=== PATIENT | male | born 1935 | race Caucasian/White ===

== ENCOUNTER 2018-01-03 11:12 | Outpatient (CLI) | payer MEDICARE, BC ==
[~2018-01-03] VITALS: Ht 182.9 cm; Wt 89.1 kg
--- NOTE | ~2018-01-03 | HEMODYNAMI ---
PATIENT:SAMUEL ESCOBAR MEDICAL RECORD: [id number] : 39 LOCATION:[facility] ADMISSION DATE: 01/03/18 Generatedon:01/03/201815:30 Patient name: SAMUEL ESCOBAR Patient #: [id number] SSN: : [id number] Date of study: 01/03/2018 Page: Of Hemodynamic Procedure Report Patient Data Patient Demographics Procedure consent was obtained First Name: SAMUEL Gender: Male Last Name: LUZ : 1935 [facility] Initial: Enmanuel. Age: 82 year(s) Patient #: [id number] Race: Unknown Additional ID: [id number] Contact details Address: [place] [address] State: [place] City: [place] Zip code: [address] Past Medical History Allergies Allergen Reaction Date Comments Reported Sulfa drugs 01/03/2018 Penicillins 01/03/2018 Admission Admission Data Admission Date: 01/03/2018 Admission Time: 11:12 Height (in.): 6 BSA: 0.35 (m2) Height (cm.): 15.24 BMI: 3769.23 (kg/m2) Weight (lbs.): 193 Weight (kg.): 87.54 Lab Results Lab Result Date: 01/03/2018 Lab Result Time: 0:00 CBC Name Units Result Min Max Hematocrit % 49.2 --(--*-)-- 42 54 Hemoglobin g/dl 17.7 --(----)*- 13.5 17.5 Procedure Procedure Types Cath Procedure Peripheral Cath Diagnostic Procedure Cath Peripheral Klkqo-Mwfsoak-Jkp-Off Procedure Description Procedure Date Procedure Date: 01/03/2018 Procedure Start Time: 15:10 Procedure End Time: 15:29 Procedure Staff Name Function Michaela Vivar RT Scrub Flynn Yoon RN Nurse Joni Chávez MD Performing Physician Angeli Shannon RT Monitor Sharon Copeland RT Monitor Buck Turner RT Scrub Procedure Data Cath Procedure Fluoroscopy Diagnostic fluoroscopy Total fluoroscopy Time: 3.5 time: 3.5 min min Diagnostic fluoroscopy Total fluoroscopy dose: 356 dose: 356 mGy mGy Contrast Material Contrast Material Type Amount (ml) Isovue 300 103 Entry Location Entry Primary Successful Side Size Upsize Upsize Entry Closure Succes sful Closure Location (Fr) 1 (Fr) 2 (Fr) Remarks Device Remarks Femoral Right 5 Fr Exoseal artery Estimated blood loss: 5 ml Diagnostic catheters Device Type Used For End Catheter Placement DIAGNOSTIC UF 5Fr Abdominal catheter ([id number]) aortogram with runoff DIAGNOSTIC IM 5Fr Lower extremity catheter ([id number]) arteriography Procedure Medications Medication Administration Route Dosage Oxygen etCO2 Nasal cannula 2 l/min Lidocaine 2% added to field 20 Heparin Flush Bag added to field 2 bags (1000units/500ml NS) 0.9% NaCl I.V. 100 ml/hr Versed I.V. 1 mg Fentanyl I.V. 50 mcg Versed I.V. 1 mg Fentanyl I.V. 50 mcg Versed I.V. 1 mg Hemodynamics Rest BSA: 0.35 (m2) HGB: 17.7 (g/dl) O2 Consumption: Estimated: 40.15 (ml/min) O2 Con sumption indexed: Estimated:114.71 (ml/min/m) Heart Rate: 71 (bpm) Snapshots Pre Cath Intra NCS Post Cath Vital Signs Time Heart Resp SPO2 etCO2 NIBP (mmHg) Rhythm Pain Sedation Rate (ipm) (%) (mmHg) Status Level (bpm) 14:47:42 78 18 98 22.5 136/92(100) NSR 0 (11) 10(A) , No pain 14:51:50 75 19 99 27.8 124/80(105) NSR 0 (11) 10(A) , No pain 14:55:57 77 18 93 0 122/71(99) NSR 0 (11) 10(A) , No pain 15:00:03 59 22 95 13.5 133/74(102) NSR 0 (11) 10(A) , No pain 15:04:11 65 14 95 20.3 120/77(95) NSR 0 (11) 10(A) , No pain 15:08:19 79 21 97 0 101/65(77) NSR 0 (11) 9(A) , No pain 15:12:17 76 17 94 16 115/78(92) NSR 0 (11) 9(A) , No pain 15:16:22 82 15 97 14.3 111/68(89) NSR 0 (11) 9(A) , No pain 15:20:22 78 14 97 11.2 123/80(98) NSR 0 (11) 9(A) , No pain 15:24:28 78 27 94 14.2 114/74(95) NSR 0 (11) 10(A) , No pain 15:28:29 79 17 94 23.3 119/78(110) NSR 0 (11) 10(A) , No pain Medications Time Medication Route Dose Verified Delivered Reason Notes Eff ectiveness by by 14:51:06 Oxygen etCO2 2 Joni Buffie used for Nasal l/min Kyler Yoon RN procedure cannula 14:51:12 Lidocaine 2% added 20ml Joni Joni for local to vial Kyler Chávez MD anesthetic field 14:51:18 Heparin Flush added 2 Joni Joni used for Bag to bags Kyler Chávez MD procedure (1000units/500ml field NS) 14:51:27 0.9% NaCl I.V. 100 Joni Buffie Per ml/hr Kyler Yoon RN physician 15:00:09 Versed I.V. 1 mg Joni Buffie for Kyler Yoon RN sedation 15:00:16 Fentanyl I.V. 50 Joni Buffie for mcg Kyler Yoon RN sedation 15:04:51 Versed I.V. 1 mg Joni Buffie for Kyler Yoon RN sedation 15:04:55 Fentanyl I.V. 50 Joni Buffie for mcg Kyler Yoon RN sedation 15:19:32 Versed I.V. 1 mg Joni Buffie for Kyler Yoon RN sedation Procedure Log Time Note 14:31:49 Time tracking: Regular hours (M-F 7:00 - 5:00) 14:31:54 Plan of Care:Hemodynamics will remain stable., Cardiac rhythm will remain stable., Comfort level will be maintained., Respiratory function will remain adequate., Patient/ family verbilizes understanding of procedure., Procedure tolerated without complication., Recovers from procedure without complications.. 14:32:47 Signed procedure consent form obtained from patient. 14:32:58 H&P Date Dictated: 12/18/2017 Within 30 days and on chart., H&P Addendum completed by physician on day of procedure. (MUST COMPLETE FOR ALL OUTPATIENTS). 14:33:29 Patient Height : 6 inches 14:33:33 Patient Weight : 193 lbs 14:37:49 Flynn Yoon RN sent for patient. Start room use. 14:42:05 Patient received from Pre/Post Procedure Room to CCL 2 Alert and oriented. Tansferred to table in Supine position. 14:42:06 Correct patient and procedure confirmed by team. 14:42:06 Warm blankets applied, and abhi hugger turned on for patient comfort. 14:42:07 ECG and BP/O2 sat monitors applied to patient. 14:46:37 Vital chart was started 14:51:06 Oxygen 2 l/min etCO2 Nasal cannula was administered by Flynn Yoon RN; used for procedure; 14:51:12 Lidocaine 2% 20ml vial added to field was administered by Joni Chávez MD; for local anesthetic; 14:51:18 Heparin Flush Bag (1000units/500ml NS) 2 bags added to field was administered by Joni Chávez MD; used for procedure; 14:51:27 0.9% NaCl 100 ml/hr I.V. was administered by Flynn Yoon RN; Per physician; 14:52:15 Full Disclosure recording started 14:52:17 Pre-op teaching completed and patient verbalized understanding. 14:52:17 Pre-procedure instructions explained to patient. 14:52:48 Family in patients room. 14:52:50 Patient NPO since Midnight. 14:53:07 Patient allergic to Sulfa drugs 14:53:14 Patient allergic to Penicillins 14:53:16 Is the patient allergic to Iodine/contrast media? No. 14:53:17 Is patient on blood thinner?No 14:53:20 Patient diabetic? No. 14:53:22 Previous problem with sedation/anesthesia? No ? 14:53:23 Snore? Yes 14:53:24 Sleep apnea? No 14:53:25 Opens mouth fully? Yes 14:53:25 Deviated septum? No 14:53:26 Sticks out tongue? Yes 14:53:28 Airway obstruction? No ? 14:53:32 Dentures? Yes OUT 14:53:47 Pre procedure: right dorsailis pedis pulse 2+ Normal; easily identifiable; not easily obliterated 14:53:50 Pre procedure: left dorsailis pedis pulse 1+ Palpable, but thready & weak; easily obliterated 14:53:53 Patient pain scale 0/10 ?. 14:54:23 IV patent on arrival in left hand with 0.9% NaCl at O. 14:54:28 Lab results completed and on chart. 14:54:32 Bilateral groins area was prepped with chlora-prep and draped in sterile fashion 14:54:33 Sharps counted by scrub and verified by R.N. 14:54:33 Alarms reviewed by R. N. 14:54:39 Use device set CATH PACK 14:54:40 ACIST Hand Control (85744) opened to sterile field. 14:54:40 ACIST Syringe (27783) opened to sterile field. 14:54:41 Bag Decanter (2002S) opened to sterile field. 14:54:41 Medline Cath Pack ([id number]) opened to sterile field. 14:54:41 ACIST Manifold (61265) opened to sterile field. 14:54:42 DIAGNOSTIC WIRE .035 260cm J wire (608034) opened to sterile field. 14:59:36 Zero performed for pressure channel P1 14:59:42 Final Timeout: patient, procedure, and site verified with staff and physician. All members of the team are in agreement. 14:59:50 Right groin site verified by team. 14:59:53 Physical assessment completed. ASA score P 2 - A patient with mild systemic disease as per Joni Chávez MD. 14:59:57 Sedation plan: IV Moderate Sedation Medication:Versed, Fentanyl 15:00:09 Versed 1 mg I.V. was administered by Flynn Yoon RN; for sedation; 15:00:16 Fentanyl 50 mcg I.V. was administered by Flynn Yoon RN; for sedation; 15:01:00 Baseline sample Acquired. 15:04:51 Versed 1 mg I.V. was administered by Flynn Yoon RN; for sedation; 15:04:55 Fentanyl 50 mcg I.V. was administered by Flynn Yoon RN; for sedation; 15:10:09 Procedure started. 15:10:12 Local anesthetic to right femoral artery with Lidocaine 2% by Joni Chávez MD.INITIAL ACCESS ONLY 15:11:34 A 5 Fr sheath was inserted into the Right Femoral artery 15:18:10 A DIAGNOSTIC UF 5Fr catheter ([id number]) was advanced over the wire and used for Abdominal aortogram with runoff. 15:18:34 GLIDE WIRE ANGLE 260cm (QL3446) opened to sterile field. 15:19:32 Versed 1 mg I.V. was administered by Flynn Yoon RN; for sedation; 15:20:04 GLIDE wire advanced. 15:22:58 A DIAGNOSTIC IM 5Fr catheter ([id number]) was advanced over the wire and used for Lower extremity arteriography. LEFT 15:23:41 Catheter removed. 15:23:47 Wire removed. 15:24:04 Sheath removed intact; hemostasis achieved with Exoseal to the Right Femoral artery. 15:24:11 Procedure ended.(Physican Out) 15:24:28 Fluoroscopy time 03.50 minutes. 15:24:32 Fluoroscopy dose: 356 mGy 15:24:32 Flurop Dose total: 356 15:24:35 Contrast amount:Isovue 300 103ml. 15:24:36 Sharps counted by scrub and verified by R.N. 15:24:37 Insertion/operative site no bleeding no hematoma. 15:25:02 Post-op/insertion site Right Femoral artery dressed using a 4 x 4 and Tegaderm. 15:25:06 Post right femoral artery:stable, clean and dry 15:25:07 Post Procedure Pulses reassessed and unchanged 15:25:09 Post-procedure physical assessment completed. ASA score P 2 - A patient with mild systemic disease as per Joni Chávez MD. 15:25:11 Post procedure rhythm: unchanged. 15:25:14 Estimated blood loss: 5 ml 15:25:15 Patient needs reinforcement of post procedure teaching. 15:25:15 Post procedure instruction explained to patient.Patient verbalizes understanding. 15:25:39 Procedure type changed to Cath procedure, Peripheral Cath Diagnostic Procedure, Cath Peripheral, Yzysg-Dwhcabu-Bbq-Off 15:26:20 See physician's report for complete and final results. 15:26:28 EXOSEAL 5Fr (EX500) opened to sterile field. 15:27:18 Procedure and supply charges have been captured, reviewed, submitted and are correct. 15:29:03 Vital chart was stopped 15:: Report given to Pre/Post Procedure Room. 15:29:08 Patient transfered to Pre/Post Procedure Room with Stretcher. 15:29:18 Full Disclosure recording stopped 15:29:18 Procedure ended. 15:29:24 End room use (Document Last) Device Usage Item Name Manufacture Quantity Catalog Hospital Part Current Minimal L ot# / Number Charge Number Stock Stock Serial# Code ACIST Acist 1 [id number] 288582 696851 [id number] 20 Syringe Medical (04058) Systems Inc ACIST Hand Acist 1 02258 753979 679045 950666 5 Control Medical (11292) Systems Inc ACIST Acist 1 65876 221644 186535 340317 5 Manifold Medical (06943) Systems Inc Medline Cardinal 1 [id number] 257803 53627 885797 5 Cath Pack Health ([id number]) Bag Microtek 1 709765 50642 834080 5 Decanter Medical Inc. () DIAGNOSTIC [facility] [place] 1 285194 571482 529117 049814 30 WIRE .035 260cm J wire (533015) DIAGNOSTIC Cardinal 1 [id number] 390222 813675 178323 10 UF 5Fr Health catheter (409922K2) GLIDE WIRE Terumo 1 [id number] 026289 004536 743339 5 ANGLE 260cm ([id number]) DIAGNOSTIC Cardinal 1 [id number] 240110 459864 528632 5 IM 5Fr Health catheter ([id number]) EXOSEAL 5Fr Cardinal 1 EX500 253144 445285 471965 10 (EX500) Health Signature Audit [place] Stage Time Signature Unsigned Intra-Procedure 01/03/2018 Sharon 3:30:39 PM Counts RT(R) Signatures Monitor : Angeli Shannon Signature : RT Date : Time : Monitor : Sharon Signature : Counts RT Date : Time : [facility] [address] [place] [address]
[~2018-01-03 11:12] MED LIST: ASPIRIN325 MG PO; CETIRIZINE HCL5 MG PO; COREG 3.1253.125 MG PO; VITAMIN D31000 UNIT PO; ZOCOR40 MG PO
[2018-01-03] MEDS ORDERED: TORSEMIDE20 MG PO (12:20)
[2018-01-03] MEDS ORDERED: FUROSEMIDE20 MG PO (12:20)
[2018-01-03] MEDS ORDERED: DIPROLENE 0.05%60 M1 TOPICAL (12:21)
[2018-01-03] MEDS ORDERED: PSEUDO-GEST60 MG PO (12:22)
[2018-01-03 12:29] VITALS: BP 119/88; Ht 182.9 cm; Wt 89.1 kg
[2018-01-03 12:46] LABS: BASOPHILS 0.3 % (0-2); HEMATOCRIT 49.2 % (42.0-54.0); HEMOGLOBIN 17.7 g/dL (13.5-17.5); IMMATURE GRANULOCYTES 0.1 % (0-5); LYMPHOCYTES 31.6 % (15-50); MCH 33.8 pg (26.0-34.0); MCV 93.9 fL (80.0-100.0); MEAN PLATELET VOLUME 11.3 fL (7.4-10.4); MONOCYTES 10.2 % (2-11); NEUTROPHILS 52.8 % (40-80); PLATELET COUNT 188 10x3/uL (130-400); RBC 5.24 10x6/uL (4.20-6.10); RDW 13.5 % (11.5-14.5); WBC 7.4 10x3/uL (4.8-10.8)
[2018-01-03 14:22] LABS: ANION GAP 15.2 mmol/L (8-16); CALCIUM 8.2 mg/dL (8.5-10.1); CARBON DIOXIDE 23.9 mmol/L (21.0-32.0); CREATININE - SERUM 1.6 mg/dL (0.6-1.3); POTASSIUM - SERUM 4.1 mmol/L (3.5-5.1)
== END 2018-01-03 17:50 | disposition home or self-care (01) ==
LOC: D.CATH 11:12
PROVIDERS: Internal Medicine Cardiovascular Disease
DX: I70.212 Atherosclerosis of native arteries of extremities with intermittent claudication, left leg (principal); Z01.812 Encounter for preprocedural laboratory examination

== ENCOUNTER → 2018-02-26 16:38 | Outpatient (CLI) | payer MEDICARE, BC ==
[2018-01-03 12:29] VITALS: BMI 26.6
[~2018-02-26 16:38] MED LIST changes: +DIPROLENE 0.05%60 M1 TOPICAL; +FUROSEMIDE20 MG PO; +PSEUDO-GEST60 MG PO; +TORSEMIDE20 MG PO
[2018-02-26 17:35] LABS: ANION GAP 15.1 mmol/L (8-16); CALCIUM 9.3 mg/dL (8.5-10.1); CARBON DIOXIDE 26.8 mmol/L (21.0-32.0); CREATININE - SERUM 1.8 mg/dL (0.6-1.3); POTASSIUM - SERUM 4.9 mmol/L (3.5-5.1)
== END | disposition home or self-care (01) ==
LOC: D.LABREF 16:38
PROVIDERS: Nurse Practitioner Adult Health
DX: I25.10 Atherosclerotic heart disease of native coronary artery without angina pectoris (principal)

== ENCOUNTER → 2018-03-20 17:16 | Outpatient (CLI) | payer MEDICARE, BC ==
[2018-01-03 12:29] VITALS: BMI 26.6
[2018-03-20 18:07] LABS: ANION GAP 16.7 mmol/L (8-16); CARBON DIOXIDE 22.8 mmol/L (21.0-32.0); CREATININE - SERUM 1.8 mg/dL (0.6-1.3); POTASSIUM - SERUM 4.5 mmol/L (3.5-5.1)
== END | disposition home or self-care (01) ==
LOC: D.LABREF 17:16
PROVIDERS: Nurse Practitioner Adult Health
DX: R25.2 Cramp and spasm (principal)

== ENCOUNTER → 2018-07-06 13:20 | Outpatient (CLI) | payer MEDICARE, BC ==
[2018-01-03 12:29] VITALS: BMI 26.6
== END | disposition home or self-care (01) ==
LOC: D.HCCARDIO 13:20
PROVIDERS: ATTEND Internal Medicine Cardiovascular Disease
DX: I42.9 Cardiomyopathy, unspecified (principal)